=== PATIENT | female | born 1980 | race Caucasian/White ===

== ENCOUNTER 2016-07-29 22:18 | Emergency (ER) | payer OTHER ==
[~2016-07-29] VITALS: Ht 170.2 cm; Wt 72.0 kg
[~2016-07-29 22:18] MED LIST: DOCU-41 PO; HYDROcodone-APAP 5-325 PO; IBUP800T28 PO
[2016-07-29 22:27] VITALS: BP 132/81; PULSE 107; RESP 24; O2SAT 100
--- NOTE | 2016-07-29 22:35 | ED.REPORT ---
HPI-General Illness Peds Date of Service Jul 29, 2016 ED Provider: Dr. Lj Jimenez M.D. The patient is a 35 year old female with a history of asthma who presents to the ED with worsening wheezing onset one week ago. Associated symptoms include nasal congestion, productive cough with green sputum, pleuritic pain, and shortness of breath. The patient denies other symptoms. Her regular albuterol inhaler has ceased to provide adequate relief. Nursing Notes Stated Complaint: ASTHMA, DIFFICULTY BREATHING Chief Complaint: Respiratory Distress Nursing Notes Reviewed: Yes Allergies: Coded Allergies: No Known Allergies (Unverified , 07/29/16) Scheduled Albuterol HFA (Proair HFA) 8.5 Gm Hfa.aer.ad 2 PUFFS INHALATION Q4H Docusate Sodium (Colace) 100 Mg Capsule 100 MG PO BID Fluticasone Furoate (Flonase Sensimist) 27.5 Mcg/Actuation [place].susp 1 SPRAY NS BID Prednisone (PredniSONE) 20 Mg Tablet 60 MG PO DAILY Scheduled PRN ([HYDROcodone-APAP 5-325]) 1 TABLET TABLET 1-2 TABLET PO Q4H PRN PRN For Pain Ibuprofen (Ibuprofen) 800 Mg Tablet 800 MG PO Q6H PRN PRN For Pain General Time Seen by MD: 22:35 Chief Complaint Breathing problem Hx Obtained from: Patient Arrived by: Walk-in Sudden in Onset?: No Onset Occurred: 1 week ago Symptom Duration: Since onset Quality: Pleuritic Severity: Current: Moderate Severity: Maximum: Moderate Relieved by: Prescription meds (Mild) Related History: Reports: Asthma Context: Immunization Status General: Unknown Recent Healthcare: No recent doctor visit Similar Sx Previous: Yes Past Medical History Past Medical History Asthma Past Surgical History None reported Smoking History Unknown if Ever Smoker Ambulatory Status Ambulatory Status: Independent Review of Systems Full Review of Systems Constitutional: Denies: Fever Ears / Nose / Throat: Reports: Nasal congestion Respiratory: Reports: Pain with breathing, Prod cough, green, Shortness of breath, Wheezing GI: Denies: Diarrhea, Vomiting Complete sys rev & neg: except as marked. Physical Exam Initial Vital Signs Vital Signs (First) Date Time Temp Pulse Resp B/P Pulse Ox O2 Delivery O2 Flow Rate FiO2 07/29/16 22:27 36.3 107 24 132/81 100 Room Air Initial VS: Reviewed Head / Eyes: Atraumatic, Normocephalic Neck: Supple, Full range of motion Cardiovascular: Regular rate & rhythm, Heart sounds normal Skin: Warm, Dry, No cyanosis Neurologic: Alert, Oriented, Nonfocal Psychiatric: Mood/affect normal, Behavior normal, Normal thought content General / Constitutional: Awake, Alert ENT: Airway patent, Mucous membranes moist Nose: Positive: Discharge nasal clear Bulging, pale, and swollen nasal mucosa Respiratory / Chest: Breath sounds = bilat Resp Distress / Stridor: Positive: Resp distress mild (Breathing at top of respiratory cycle) Wheezing / Retractions: Positive Wheeze insp/exp diffuse Re-Eval/Medical Decision Med Decision/Clinical Course 35-year-old with known asthma and an exacerbation in the setting of seasonal allergies, presents with fairly significant dyspnea initially. Much improved after DuoNeb and albuterol. Given Decadron here and prednisone six day course to follow. Initiate Flonase twice a day. Continue antihistamines. Follow up with PCP. Spacer for MDI given. Re-Evaluation/Progress #1: Time of Eval: 22:46 Patient Status: Condition improved Re-Evaluation/Progress Note: Discussed with patient physical exam findings, diagnosis, and plan for discharge after breathing treatment. Follow-up and return to the ER instructions given. Patient agrees with plan for care and all questions were addressed. Re-Evaluation/Progress #2: Time of Eval: 23:11 Patient Status: Condition improved Re-Evaluation/Progress Note: Patient's breath sounds have much improved. She is no longer in respiratory distress and is taking deep breaths. Patient ready for discharge. Counseled Regarding: Diagnosis, Need for follow-up, When/why to return to ED Discharge & Departure Impression: Primary Impression: Asthma Asthma severity: moderate persistent Asthma complication type: with status asthmaticus Qualified Code: J45.42 - Moderate persistent asthma with status asthmaticus Additional Impression: Allergic rhinitis Allergic rhinitis trigger: unspecified Allergic rhinitis seasonality: seasonal Qualified Code: J30.2 - Other seasonal allergic rhinitis Disposition: Home Discharge Condition )( All Prior VS Reviewed: Yes Condition: Improved Patient Instructions: Allergic Rhinitis (ED), How to Use a Nebulizer (ED) Additional Instructions: Begin Flonase one sniff each nostril twice daily. Begin prednisone three tabs daily for six days. Albuterol two puffs every four hours for tightness and wheeze. Always use a spacer with your albuterol metered-dose inhaler. Continue either Zyrtec or Claritin or Tiesha daily. Taking more than one of these has no additional benefit. Follow-up with your doctor in the office. Return here promptly if you are not improving despite the above therapy. Return sooner, rather than later, as you can get into trouble once you fatigue. Referrals: Prashant Flores MD (PCP) [place] Attestation Portions of this note were transcribed by Olivia Lam. I, Dr. Jimenez, personally performed the history, physical exam, and medical decision-making; I reviewed and confirmed the accuracy of the information in the transcribed note. Signed by: Jayda Montgomery, 07/29/2016, 23:35 copies to: Prashant Flores MD, Christopher W MD Jul 29, 2016 22:35 OLIVIA LAM Jul 29, 2016 22:42
[2016-07-29] MEDS ORDERED: Albuterol 2.5 mg/3 mL Inhalation Solution NEB ONE (22:45)
[2016-07-29] MEDS ORDERED: Dexamethasone 20 mg/2 mL Oral Solution PO ONE (22:45)
[2016-07-29] MEDS ORDERED: Albuterol-Ipratropium 3 mL Inhalation Solution NEB ONE (22:45)
[2016-07-29] MEDS ORDERED: ALBU8.5H2 INHALATION (22:48)
[2016-07-29] MEDS ORDERED: PRE20 PO (22:48)
[2016-07-29] MEDS ORDERED: FLUT9.9S16 NS (22:48)
[2016-07-29 22:52] VITALS: PULSE 111; RESP 20; O2SAT 98
[2016-07-29 23:29] VITALS: BP 118/72; PULSE 107; RESP 22; O2SAT 94
== END 2016-07-29 23:27 | disposition home or self-care (01) ==
LOC: SED 22:18
DX: J45.42 Moderate persistent asthma with status asthmaticus (principal); J30.2 Other seasonal allergic rhinitis
CPT/HCPCS: 94664; 99284; J7613; J7620